=== PATIENT | female | born 1985 | race Caucasian/White ===

== ENCOUNTER 2020-11-24 08:19 | Inpatient (IN) ==
[2020-11-24] MEDS ORDERED: ONDANSETRON 4 MG/2 ML VIAL IV PRN (10:33)
[2020-11-24] MEDS ORDERED: POTASSIUM CHLORIDE 20 MEQ TABLET PO PRN ×2 (10:33)
[2020-11-24] MEDS ORDERED: SENNOSIDES 1 TABLET PO PRN (10:33)
[2020-11-24] MEDS ORDERED: MAGNESIUM SULFATE 2 GM/50 ML BAG IV PRN (10:33)
[2020-11-24] MEDS ORDERED: POTASSIUM CHLORIDE 40 MEQ in DEXTROSE 5% IN WATER 500 ML IV PRN (10:33)
[2020-11-24] MEDS ORDERED: POLYETHYLENE GLYCOL 3350 17 GM PACKET PO PRN (10:33)
--- NOTE | 2020-11-24 10:33 | Internal Med History&Physical ---
HPI History of Present Illness Patient information: Note initiated : 11/24/20 at 10:30 am Service Date, if different from initiated Date: [] Patient: Shaye Dey a 35 y/o F admitted on 11/24/20 for Pneumothorax. Chief Complaint: [] History of present illness: Ms. Dey is a 35 year old F Presents to the ED with chest pain or shortness of breath. Chest pain is left side duration. Started 3 AM while at work. no trauma. She did report that 2 to 3 weeks ago she was exercising on a stair machine for an hour when she developed similar symptoms but not as severe at eventually went away after several hours. pain is sharp and pleuritic. ED work-up included chest x-ray which showed a large pneumothorax and a pigtail catheter was placed. Chest tube placed to waterseal there was an occasional leak. Review of Systems: Pertinent positives as above. Denies headache/fever/chills/nausea/vomiting/abdominal pain/cough/diarrhea. Otherwise see above. PFSH PFSH All Active Problems (Updated 08/21/20 @ 17:05 by ARIANNA David) Pelvic congestion syndrome (Acute) Eosinophilic esophagitis (Acute) Lactose intolerance (Acute) Noninflammatory disorder of vagina (Acute) H/O breast augmentation (Acute) History of tonsillectomy (Acute) Anemia (Acute) Situational anxiety (Acute) Skin lesion (Acute) Fatigue (Acute) Acne vulgaris (Acute) Menometrorrhagia (Acute) Hip pain (Acute) Hip pain, acute (Acute) Muscle tear (Acute) Medical History (Updated 08/21/20 @ 17:05 by ARIANNA David) Acne vulgaris Anemia Eosinophilic esophagitis EGD 07/21/2017 Fatigue Hip pain Hip pain, acute Menometrorrhagia Muscle tear Noninflammatory disorder of vagina Situational anxiety Skin lesion Surgical History (Updated 08/21/20 @ 17:02 by ARIANNA David) H/O breast augmentation 2012 H/O dilation and curettage 2006 History of esophagogastroduodenoscopy (EGD) (~07/21/17) Shannon ~ Dysphagia; known eosinophilic esophagitis with last esophageal biopsies and dilation History of tonsillectomy 1997, one grew back and had repeat tonsillectomy in 1999. Family History Brother Hypertension Father Diabetes Grandmother Arthritis Diabetes Social History (Updated 11/24/20 @ 10:33 by Leon Vergara DO) household members: spouse and family lives independently: No marital status: occupational status: employed occupation: [employer] occupational exposures/hazards: Yes leisure activities: exercise physical activity: weight training frequency: 5-6 times per week smoking status: Never smoker alcohol intake frequency: 0-2 drinks per day seatbelt use: sometimes additional history: Past medical history: He has history of eosinophilic esophagitis Past surgical history: Tonsillectomy D&C left foot Family history: Otherwise healthy and father had diabetes Social history: Patient denies tobacco drinks alcohol rarely MEDS/ALLERGIES Home Medications and Allergies Home Medications Medication Instructions Recorded Confirmed Type No Known Home Meds 05/20/20 08/21/20 History Allergies Allergy/AdvReac Type Severity Reaction Status Date / Time Sulfa (Sulfonamide Allergy Severe Rash Verified 08/21/20 15:14 Antibiotics) EXAM Constitutional Vitals: Temp Resp BP Pulse Ox 98.4 F 16 111/69 100 11/24/20 10:01 11/24/20 10:01 11/24/20 10:01 11/24/20 10:01 Exam: General: Alert, Awake, No acute Distress Eyes/N/T: EOMI, PERRL, Head/Neck: neck supple, normocephalic atraumatic CV: RRR, No murmurs, normal s1/s2 Pulm: Clear b/l, no wheezing/rhonchi/rales, chest tube left side. Abd: soft, nontender, +BS x4 Ext: no clubbing/cyanosis/edema Neuro: Alert, no focal deficits, moves all extremities, CN 2-12 grossly intact, symmetrical strength b/l upper/lower, sensations intact b/l upper/lower Skin: warm/dry A/P Narrative A/P Narrative: A: *PTX, spontaneous: s/p pigtail catheter (11/24) -did have similar less severe episode 2-3weeks ago after 1 hour on stair machine that resolved on own. P: -serial CXR -CT on water seal -ppx: Ambulation/scd Time Spent With Patient Time: Total time spent is greater than 50% in coordination of care (as documented) at patient's floor/unit and/or counseling patient:
--- NOTE | 2020-11-24 10:57 | XRay Report ---
CLINICAL INFORMATION: f/u ptx COMPARISON: None. FINDINGS: Heart size, mediastinum and pulmonary vessels are normal. Pigtail chest tube overlies the left base. There is a persistent 50% pneumothorax or no effusion. Bones and soft tissues normal IMPRESSION: 50% pneumothorax following chest tube placement. It is assumed the tube is malpositioned. Hospitalist was notified. New small bore chest tube will be placed in our department under fluoroscopy and the older tube will be removed Interpreted and Authenticated by: Attila Fabian 11/24/20
[2020-11-24] MEDS: morphine 4 MG/ML VIAL IV PRN ×2 (11:31→21:26)
--- NOTE | 2020-11-24 12:22 | Cat Scan Report ---
CLINICAL INFORMATION: Persistent spontaneous left pneumothorax following left chest tube placement COMPARISON: Plain film 11/24/2021 TECHNIQUE: 0.625 mm axial slices were obtained from the thoracic aortic arch through the mid heart without intravenous contrast. 2.5 mm Sagittal, coronal and axial reformatted images were processed and reviewed at bone, lung and soft tissue windows. 7 mm axial MIP images were also reconstructed to optimize pulmonary nodule detection.Limited exam was performed because the question was merely the chest tube position and breast radiation neither be limited. The exam was performed using radiation dose optimization techniques including, but not limited to, automated exposure control, adjustment of the mA and/or kV according to patient size and use of iterative reconstruction technique. FINDINGS: The pigtail chest tube enters through the lateral fifth intercostal space at approximately the posterior axillary line level. The tube is very near the subcostal neurovascular bundle, but there is no evidence of hemorrhage or other evidence to suggest leak callum disruption of the intercostal artery. The tube traverses superiorly and anteriorly entirely within the pleural space. A persistent 30% left pneumothorax noted. There is mild patchy atelectasis in the left lower lobe lingula and in the visualized right middle lobe. No evidence of pleural hemorrhage. Mediastinal windows show the visualized thoracic aorta and pulmonary arteries are normal. Heart is unremarkable. Visualized esophagus is normal. Bilateral subglandular breast implants show mild irregularity in the outer shell suggestive of adhesive capsulitis. No evidence of calulm extracapsular rupture. IMPRESSION: 1. Left chest tube is in satisfactory position with the draining pigtail portion in the tube within the air-filled nondependent left anterior pleural space. Since there is a persistent pneumothorax following chest tube placement, and is assumed the tube may be occluded - please dislodge the tube to restore functionality. 2. Minor subsegmental atelectasis in the lingula and the left lower lobe.. Interpreted and Authenticated by: Attila Fabian 11/24/20
[2020-11-24] MEDS: HYDROcodone/APAP 5/325MG TABLET PO PRN ×2 (12:29→18:07)
--- NOTE | 2020-11-24 13:16 | XRay Report ---
CLINICAL INFORMATION: ptx COMPARISON: Plain film 11/24/2020 1028 hours FINDINGS: Following jewish of the chest tube patency, the left pneumothorax has decreased considerably now approximately 5%. Both lungs are clear. Heart size, mediastinum and pulmonary vessels are normal. IMPRESSION: Decreasing left pneumothorax - now approximately 5%. Interpreted and Authenticated by: Attila Fabian 11/24/20
[2020-11-24] MEDS: 0.9 % SODIUM CHLORIDE 10 ML SYRINGE IV SCH ×2 (14:00→21:16)
[2020-11-24] MEDS: DOCUSATE SODIUM 100 MG CAPSULE PO SCH (21:16)
[2020-11-25] MEDS: 0.9 % SODIUM CHLORIDE 10 ML SYRINGE IV SCH ×3 (05:51→21:30)
--- NOTE | 2020-11-25 06:52 | XRay Report ---
CLINICAL INFORMATION: f/u ptx COMPARISON: 11/24/2020 FINDINGS: Left pneumothorax increased slightly now approximately 10%. Left chest tube stable satisfactory position. Heart size, mediastinum and pulmonary vessels are normal. Lungs are clear. IMPRESSION: Increase in left pneumothorax - approximately 10%. Consider placing the tube back to suction. Interpreted and Authenticated by: Attila Fabian 11/25/20
[2020-11-25] MEDS: HYDROcodone/APAP 5/325MG TABLET PO PRN ×3 (07:07→19:59)
--- NOTE | 2020-11-25 08:35 | Internal Med Progress Note ---
SUBJECTIVE Subjective Patient information: Note initiated : 11/25/20 at 8:31 am Service Date, if different from initiated Date: [] Patient: Shaye Dey a 35 y/o F admitted on 11/24/20 for Pneumothorax. Chief Complaint: [] Interval history: History of present illness: Ms. Dey is a 35 year old F Presents to the ED with chest pain or shortness of breath. Chest pain is left side duration. Started 3 AM while at work. no trauma. She did report that 2 to 3 weeks ago she was exercising on a stair machine for an hour when she developed similar symptoms but not as severe at eventually went away after several hours. pain is sharp and pleuritic. ED work-up included chest x-ray which showed a large pneumothorax and a pigtail catheter was placed. Chest tube placed to waterseal there was an occasional leak. 11/25 Feeling better. Able to take deeper breaths. pleuritic Chest pain and sob improved. f/u cxr with 10% ptx. Review of Systems: denies headache/fever/chills/nausea/vomiting/chest or abdominal pain/cough/diarrhea. Otherwise see above. Constitutional Vitals: Vital Signs Temp Pulse Resp BP Pulse Ox 97.9 F 68 18 107/66 97 11/25/20 08:00 11/25/20 08:00 11/25/20 08:00 11/25/20 08:00 11/25/20 08:00 Period Temp Pulse Resp BP Sys/Hastings Pulse Ox Last 24 Hr 97.8 F-98.5 F 60-68 16-18 100-120/62-71 97-100 Intake and Output 11/24/20 11/25/20 11/25/20 21:59 05:59 13:59 Intake Total 0 600 Balance 0 600 Weight 70.261 kg Intake & Output: Intake & Output 11/24/20 11/25/20 11/25/20 21:59 05:59 13:59 Intake Total 0 600 Balance 0 600 Weight 70.261 kg Intake: Oral 0 600 Other: # Voids 1 Exam: General: Alert, Awake, No acute Distress Eyes/N/T: EOMI, , Head/Neck: neck supple, CV: RRR, No murmurs, Pulm: Clear b/l, no wheezing/rhonchi/rales, chest tube left side. Abd: soft, nontender, +BS x4 Ext: no clubbing/cyanosis/edema Neuro: Alert, no focal deficits, moves all extremities, Skin: warm/dry OBJ DATA Labs Meds: Medications Acetaminophen (Acetaminophen 325 Mg Tablet) 650 mg PO Q6HP PRN PRN Reason: PAIN/FEVER > 101 Hydrocodone Bitart/Acetaminophen (Hydrocodone/Apap 5/325mg Tablet) 1 tab PO Q4HP PRN PRN Reason: PAIN LEVEL 3-6 Last Admin: 11/25/20 07:07 Dose: 1 tab Documented by: Docusate Sodium (Docusate Sodium 100 Mg Capsule) 100 mg PO BID [facility] Last Admin: 11/24/20 21:16 Dose: 100 mg Documented by: Potassium Chloride 40 meq/ (Dextrose) 520 mls @ 130 mls/hr IV UD PRN PRN Reason: Potassium < 3 Magnesium Sulfate (Magnesium Sulfate) 2 gm in 50 mls @ 50 mls/hr IV UD PRN PRN Reason: Magnesium </= 1.6 Morphine Sulfate (Morphine 4 Mg/Ml Vial) 0 mg IV Q3HP PRN PRN Reason: Pain Last Admin: 11/24/20 21:26 Dose: 3 mg Documented by: Ondansetron HCl (Ondansetron 4 Mg/2 Ml Vial) 4 mg IV Q4HP PRN PRN Reason: Nausea And Vomiting Polyethylene Glycol (Polyethylene Glycol 3350 17 Gm Packet) 17 gm PO DAILYP PRN PRN Reason: Constipation Potassium Chloride (Potassium Chloride 20 Meq Tablet) 40 meq PO UD PRN PRN Reason: Potssium is 3-3.5 Potassium Chloride (Potassium Chloride 20 Meq Tablet) 40 meq PO UD PRN PRN Reason: Potassium < 3 Senna (Sennosides 1 Tablet) 2 tab PO DAILYP PRN PRN Reason: Constipation Sodium Chloride (0.9 % Sodium Chloride 10 Ml Syringe) 10 ml IV Q8 [facility] Last Admin: 11/25/20 05:51 Dose: 10 ml Documented by: A/P Narrative A/P Narrative: A: *PTX, spontaneous: s/p pigtail catheter (11/24) -did have similar less severe episode 2-3weeks ago after 1 hour on stair machine that resolved on own. -improved yesterday but increased to 10% again today P: -serial CXR -place back on suction -ppx: Ambulation/scd Time Spent With Patient Time: Total time spent is greater than 50% in coordination of care (as do cumented) at patient's floor/unit and/or counseling patient: QUALITY VTE Deep Vein Thrombosis/Pulmonary Embolism Present on Admission: No
[2020-11-25] MEDS: DOCUSATE SODIUM 100 MG CAPSULE PO SCH ×2 (09:53→21:48)
--- NOTE | 2020-11-25 13:28 | General Surgery Consult Note ---
HPI Data of Consult Patient: new to practice Consult date: 11/25/20 Requesting physician: Leon Vergara Primary Care Provider: Manju Ho Consult Narrative Chief complaint: Chest pain Reason for consult: Spontaneous pneumothorax History of present illness: This is a pleasant 35-year-old female who initially experienced some chest pain approximately 2 weeks ago when she was working out. She reports she stopped working out and the pain lasted about an hour and then spontaneously resolved. She then was woken up in the middle the night with recurrent chest pain which progressively got worse associated with mild dizziness. She presented to [facility] for work-up, was found to have about a 50% spontaneous pneumothorax. The emergency room provider placed a chest tube and follow-up chest x-ray showed full resolution of the pneumothorax. Apparently there were no beds therefore patient was discharged with a flutter valve and told to present to [facility] where Dr. Vergara would admit her. She was mated to the hospital, repeat chest x-ray showed reaccumulation of the pneumothorax therefore radiology replaced the chest tube. Chest x-ray this morning shows approximately 10% pneumothorax after the chest tube was placed on waterseal overnight. I was asked to see the patient for further chest tube management. She denies any fevers chills nausea or vomiting. cc:: CC: Leon Vergara Review of Systems Review of systems: All systems are reviewed, negative other than above PFSH PFSH All Active Problems Pelvic congestion syndrome (Acute) Eosinophilic esophagitis (Acute) Lactose intolerance (Acute) Noninflammatory disorder of vagina (Acute) H/O breast augmentation (Acute) History of tonsillectomy (Acute) Anemia (Acute) Situational anxiety (Acute) Skin lesion (Acute) Fatigue (Acute) Acne vulgaris (Acute) Menometrorrhagia (Acute) Hip pain (Acute) Hip pain, acute (Acute) Muscle tear (Acute) Medical History Acne vulgaris Anemia Eosinophilic esophagitis EGD 07/21/2017 Fatigue Hip pain Hip pain, acute Menometrorrhagia Muscle tear Noninflammatory disorder of vagina Situational anxiety Skin lesion Surgical History H/O breast augmentation 2012 H/O dilation and curettage 2006 History of esophagogastroduodenoscopy (EGD) (~07/21/17) Shannon ~ Dysphagia; known eosinophilic esophagitis with last esophageal biopsies and dilation History of tonsillectomy 1997, one grew back and had repeat tonsillectomy in 1999. Family History Brother Hypertension Father Diabetes Grandmother Arthritis Diabetes Social History household members: spouse and family lives independently: No marital status: occupational status: employed occupation: [employer] occupational exposures/hazards: Yes leisure activities: exercise physical activity: weight training frequency: 5-6 times per week smoking status: Never smoker alcohol intake frequency: 0-2 drinks per day seatbelt use: sometimes additional history: Past medical history: He has history of eosinophilic esophagitis Past surgical history: Tonsillectomy D&C left foot Family history: Otherwise healthy and father had diabetes Social history: Patient denies tobacco drinks alcohol rarely MEDS/ALLERGIES Home Medications and Allergies Home Medications Medication Instructions Recorded Confirmed Type [id number] K 1 tab PO QPM 11/24/20 11/24/20 History [Adults' Daily Formula] Allergies Allergy/AdvReac Type Severity Reaction Status Date / Time egg Allergy Severe Anaphylaxis Verified 11/24/20 10:50 Sulfa (Sulfonamide Allergy Severe Rash Verified 11/24/20 10:50 Antibiotics) lactose AdvReac Intermediate Nausea Verified 11/24/20 10:50 Physical Examination Vital Signs Vital signs: Temp Pulse Resp BP Pulse Ox 97.9 F 68 18 107/66 97 11/25/20 08:00 11/25/20 08:00 11/25/20 08:00 11/25/20 08:00 11/25/20 08:00 General physical appearance General physical exam: well developed, well nourished and no distress Eyes Eye exam: PERRL and normal ocular movement ENT ENT exam: normal pinna, normal nares, normal mucosa, no hearing loss and no congestion Head Head exam IM: Present atraumatic and normocephalic Neck Neck exam: no masses, no bruits, trachea midline, no lymphadenopathy and no venous distension Cardiovascular Cardiovascular exam IM: Present normal rate and rhythm Respiratory Respiratory exam: normal expansion, clear to auscultation and other (Left-sided chest tube in place) Abdomen Abdomen: Present soft, non tender and bowel sounds Hernia: Present none Genitourinary Genitourinary (Female): Present normal external genitalia Rectum Rectum: Present normal sphincter tone, no hemorrhoids, no tenderness, no masses and no bleeding Integumentary Integumentary: Present no rash, no growths and no abnormal pigmentation Neurologic Neurologic: Present normal coordination and normal sensation Musculoskeletal Musculoskeletal: Present normal gait and normal posture Psychiatric Psychiatric: Present oriented to time, oriented to person, oriented to place, speech is normal and memory intact Results Labs Labs: All other labs normal. A/P Narrative A/P Narrative: Spontaneous pneumothorax. Recommendations: Chest tube to suction for minimum 24 hours, repeat chest x-ray if no pneumothorax then can try waterseal with chest x-ray 4 hours after being placed on waterseal. If pneumothorax continues patient will likely need thoracic surgery transfer. Time Spent With Patient Time: Total time spent is greater than 50% in coordination of care (as documented) at patient's floor/unit and/or counseling patient: Total time spent with greater than 50% in coordination of care (as documented) at patient's floor/unit and/or counseling patient:: Greater than 35 minutes
[2020-11-25] MEDS: morphine 4 MG/ML VIAL IV PRN (15:24)
[2020-11-26] MEDS: morphine 4 MG/ML VIAL IV PRN ×2 (02:16→10:14)
[2020-11-26] MEDS: DOCUSATE SODIUM 100 MG CAPSULE PO SCH ×2 (08:15→20:10)
[2020-11-26] MEDS: HYDROcodone/APAP 5/325MG TABLET PO PRN ×2 (08:25→18:39)
[2020-11-26] MEDS: 0.9 % SODIUM CHLORIDE 10 ML SYRINGE IV SCH ×3 (08:26→20:10)
--- NOTE | 2020-11-26 08:39 | Internal Med Progress Note ---
SUBJECTIVE Subjective Patient information: Note initiated : 11/26/20 at 8:37 am Service Date, if different from initiated Date: [] Patient: Shaye Dey a 35 y/o F admitted on 11/24/20 for Pneumothorax. Chief Complaint: [] Interval history: History of present illness: Ms. Dey is a 35 year old F Presents to the ED with chest pain or shortness of breath. Chest pain is left side duration. Started 3 AM while at work. no trauma. She did report that 2 to 3 weeks ago she was exercising on a stair machine for an hour when she developed similar symptoms but not as severe at eventually went away after several hours. pain is sharp and pleuritic. ED work-up included chest x-ray which showed a large pneumothorax and a pigtail catheter was placed. Chest tube placed to waterseal there was an occasional leak. 11/25 Feeling better. Able to take deeper breaths. pleuritic Chest pain and sob improved. f/u cxr with 10% ptx. 11/26 Continues to feel better. Waiting follow-up chest x-ray. No new complaints overnight events. Review of Systems: denies headache/fever/chills/nausea/vomiting/chest or abdominal pain/cough/diarrhea. Otherwise see above. Constitutional Vitals: Vital Signs Temp Pulse Resp BP Pulse Ox 98.6 F 61 20 90/51 97 11/26/20 08:00 11/26/20 08:00 11/26/20 08:00 11/26/20 08:00 11/26/20 08:00 Period Temp Pulse Resp BP Sys/Hastings Pulse Ox Last 24 Hr 97.4 F-98.6 F 61-77 16-22 90-116/51-72 97-98 Intake and Output 11/25/20 11/26/20 11/26/20 21:59 05:59 13:59 Intake Total 700 400 Output Total 5 Balance 700 395 Weight 70.488 kg Intake & Output: Intake & Output 11/25/20 11/26/20 11/26/20 21:59 05:59 13:59 Intake Total 700 400 Output Total 5 Balance 700 395 Weight 70.488 kg Intake: Oral 700 400 Output: Chest Tube Drainage 5 Left Lateral Chest 5 Exam: General: Alert, Awake, No acute Distress Eyes/N/T: EOMI, , Head/Neck: neck supple, CV: RRR, No murmurs, Pulm: Clear b/l, no wheezing/rhonchi/rales, chest tube left side. Abd: soft, nontender, +BS x4 Ext: no clubbing/cyanosis/edema Neuro: Alert, no focal deficits, moves all extremities, Skin: warm/dry OBJ DATA Labs Meds: Medications Acetaminophen (Acetaminophen 325 Mg Tablet) 650 mg PO Q6HP PRN PRN Reason: PAIN/FEVER > 101 Hydrocodone Bitart/Acetaminophen (Hydrocodone/Apap 5/325mg Tablet) 1 tab PO Q4HP PRN PRN Reason: PAIN LEVEL 3-6 Last Admin: 11/26/20 08:25 Dose: 1 tab Documented by: Docusate Sodium (Docusate Sodium 100 Mg Capsule) 100 mg PO BID [facility] Last Admin: 11/26/20 08:15 Dose: Not Given Documented by: Potassium Chloride 40 meq/ (Dextrose) 520 mls @ 130 mls/hr IV UD PRN PRN Reason: Potassium < 3 Magnesium Sulfate (Magnesium Sulfate) 2 gm in 50 mls @ 50 mls/hr IV UD PRN PRN Reason: Magnesium </= 1.6 Morphine Sulfate (Morphine 4 Mg/Ml Vial) 0 mg IV Q3HP PRN PRN Reason: Pain Last Admin: 11/26/20 02:16 Dose: 3 mg Documented by: Ondansetron HCl (Ondansetron 4 Mg/2 Ml Vial) 4 mg IV Q4HP PRN PRN Reason: Nausea And Vomiting Polyethylene Glycol (Polyethylene Glycol 3350 17 Gm Packet) 17 gm PO DAILYP PRN PRN Reason: Constipation Potassium Chloride (Potassium Chloride 20 Meq Tablet) 40 meq PO UD PRN PRN Reason: Potssium is 3-3.5 Potassium Chloride (Potassium Chloride 20 Meq Tablet) 40 meq PO UD PRN PRN Reason: Potassium < 3 Senna (Sennosides 1 Tablet) 2 tab PO DAILYP PRN PRN Reason: Constipation Sodium Chloride (0.9 % Sodium Chloride 10 Ml Syringe) 10 ml IV Q8 [facility] Last Admin: 11/26/20 08:26 Dose: 10 ml Documented by: A/P Narrative A/P Narrative: A: *PTX, spontaneous: s/p pigtail catheter (11/24) -did have similar less severe episode 2-3weeks ago after 1 hour on stair machine that resolved on own. - P: -Chest tube per surgeon -serial CXR -ppx: Ambulation/scd Time Spent With Patient Time: Total time spent is greater than 50% in coordination of care (as documented) at patient's floor/unit and/or counseling patient: QUALITY VTE Deep Vein Thrombosis/Pulmonary Embolism Present on Admission: No
--- NOTE | 2020-11-26 09:21 | General Surgery Progress Note ---
SUBJECTIVE Subjective Patient information: Note initiated : 11/26/20 at 9:18 am Service Date, if different from initiated Date: [] Patient: Shaye Dey 35 y/o F admitted on 11/24/20 for Pneumothorax. Chief Complaint: [] Interval history: Chest tube placed on suction overnight. Patient is tolerating it well. Reports decreased in amount of pain. Denies any nausea vomiting fevers or chills. Constitutional Vitals: Vital Signs Temp Pulse Resp BP Pulse Ox 98.6 F 61 20 90/51 97 11/26/20 08:00 11/26/20 08:00 11/26/20 08:00 11/26/20 08:00 11/26/20 08:00 Period Temp Pulse Resp BP Sys/Hastings Pulse Ox Last 24 Hr 97.4 F-98.6 F 61-77 16-22 90-116/51-72 97-98 Intake and Output 11/25/20 11/26/20 11/26/20 21:59 05:59 13:59 Intake Total 700 400 Output Total 5 Balance 700 395 Weight 155 lb 6.4 oz Intake & Output: Intake & Output 11/25/20 11/26/20 11/26/20 21:59 05:59 13:59 Intake Total 700 400 Output Total 5 Balance 700 395 Weight 155 lb 6.4 oz Intake: Oral 700 400 Output: Chest Tube Drainage 5 Left Lateral Chest 5 General appearance: cooperative and no acute distress Head Head exam: Present atraumatic Respiratory Additional comments: Chest tube intact, no air leak noted. GI/Abdominal GI/Abdominal exam: Present soft; Absent distended A/P Narrative A/P Narrative: Spontaneous pneumothorax with recurrent pneumothorax. Chest tube placed on suction for 24 hours. Plan chest x-ray at 10, if no pneumothorax will place on waterseal with repeat chest x-ray in 6 hours. If continued pneumothorax will leave on suction for a full 48 hours. Time Spent With Patient Time: Total time spent is greater than 50% in coordination of care (as documented) at patient's floor/unit and/or counseling patient:
--- NOTE | 2020-11-26 09:29 | XRay Report ---
CLINICAL INFORMATION: ptx COMPARISON: 11/25/2020 FINDINGS: Left pneumothorax as almost completely resolved with only a tiny sliver of residual pleural air in the apex region. The chest tube is now seen over the lateral left upper thorax. Lungs are clear. Heart size, mediastinum and pulmonary vessels are normal. IMPRESSION: Near complete resolution of left pneumothorax. Consider test closure of the tube for two hours and repeat film. If the lung remains expanded on follow-up film, the tube could be removed. Interpreted and Authenticated by: Attila Fabian 11/26/20
--- NOTE | 2020-11-26 12:17 | XRay Report ---
CLINICAL INFORMATION: pneumothorax two hours following has closure of the bowel COMPARISON: None. FINDINGS: Film taken two hours following chest closure of the valve shows slight increase in left pneumothorax - now approximately 5-10%. Heart size, mediastinum and pulmonary vessels normal. Lungs are clear. No effusions IMPRESSION: Slight progression of left pneumothorax two hours following chest closure suggest suggesting persistent air leak. Suggest the valve be reopened. The patient may go home with tube if desired Interpreted and Authenticated by: Attila Fabian 11/26/20
--- NOTE | 2020-11-26 13:08 | Discharge Summary ---
Discharge Provider Provider Patient information: Note initiated : 11/26/20 at 1:07 pm Service Date, if different from initiated Date: [] Patient: Shaye Dey 35 y/o F admitted on 11/25/20 for Pneumothorax. Chief Complaint: [] Date of admission: 11/25/20 10:05 Primary care physician: Manju Ho Consults: 11/25/20 10:03 Consult to Physician [CONS] Routine Comment: ptx Consulting Provider: James Molina Reason For Exam: Physician to Consult Discharge Meds Discharge Medications Home Medications wumrgism-sml-dovz-vitamin K [Adults' Daily Formula] 1 tab PO QPM 11/24/20 [History Confirmed 11/24/20 Last Taken 11/23/20 22:00] COURSE Hospital Course Hospital course: History of present illness: Ms. Dey is a 35 year old F Presents to the ED with chest pain or shortness of breath. Chest pain is left side duration. Started 3 AM while at work. no trauma. She did report that 2 to 3 weeks ago she was exercising on a stair machine for an hour when she developed similar symptoms but not as severe at eventually went away after several hours. pain is sharp and pleuritic. ED work-up included chest x-ray which showed a large pneumothorax and a pigtail catheter was placed. Chest tube placed to waterseal there was an occasional leak. 11/25 Feeling better. Able to take deeper breaths. pleuritic Chest pain and sob improved. f/u cxr with 10% ptx. 11/26 Continues to feel better. Waiting follow-up chest x-ray. No new complaints overnight events. A: *PTX, spontaneous: s/p pigtail catheter (11/24) -did have similar less severe episode 2-3weeks ago after 1 hour on stair machine that resolved on own. Discharge diagnosis: Spontaneous pneumothorax Time Spent with Patient Time attestation: Total time spent providing and/or coordinating discharge services: Time spent: Greater than 30 minutes EXAM Constitutional Vitals: Temp Pulse Resp BP Pulse Ox 98.6 F 61 20 90/51 97 11/26/20 08:00 11/26/20 08:00 11/26/20 08:00 11/26/20 08:00 11/26/20 08:00 Discharge Plan Patient/Caregiver Discharge Instructions Activity: increase activity as tolerated Diet: Regular Diet Prescriptions: No Action Adults' Daily Formula 18 mg iron-25 mcg Tablet 1 tab PO QPM RF: 0 Follow Up Plan Follow up with: James Molina MD [Physician] - Patient Disposition: Home, Self-Care Prognosis: Fair QUALITY VTE Deep Vein Thrombosis/Pulmonary Embolism Present on Admission: No
[2020-11-26] MEDS: ACETAMINOPHEN 325 MG TABLET PO PRN ×2 (14:36→23:21)
[2020-11-27] MEDS: HYDROcodone/APAP 5/325MG TABLET PO PRN ×3 (00:17→20:17)
[2020-11-27] MEDS: 0.9 % SODIUM CHLORIDE 10 ML SYRINGE IV SCH ×3 (05:56→20:18)
--- NOTE | 2020-11-27 07:42 | Internal Med Progress Note ---
SUBJECTIVE Subjective Patient information: Note initiated : 11/27/20 at 7:41 am Service Date, if different from initiated Date: [] Patient: Shaye Dey a 35 y/o F admitted on 11/25/20 for Pneumothorax. Chief Complaint: [] Interval history: History of present illness: Ms. Dey is a 35 year old F Presents to the ED with chest pain or shortness of breath. Chest pain is left side duration. Started 3 AM while at work. no trauma. She did report that 2 to 3 weeks ago she was exercising on a stair machine for an hour when she developed similar symptoms but not as severe at eventually went away after several hours. pain is sharp and pleuritic. ED work-up included chest x-ray which showed a large pneumothorax and a pigtail catheter was placed. Chest tube placed to waterseal there was an occasional leak. 11/25 Feeling better. Able to take deeper breaths. pleuritic Chest pain and sob improved. f/u cxr with 10% ptx. 11/26 Continues to feel better. Waiting follow-up chest x-ray. No new complaints overnight events. Review of Systems: denies headache/fever/chills/nausea/vomiting/chest or abdominal pain/cough/diarrhea. Otherwise see above. 11/27 Feeling better today. Mild chest pain in the scapular region when she lays down but otherwise no complaints. Review of Systems: denies headache/fever/chills/nausea/vomiting/abdominal pain/cough/diarrhea. Otherwise see above. Constitutional Vitals: Vital Signs Temp Pulse Resp BP Pulse Ox 97.7 F 63 14 101/59 98 11/27/20 03:00 11/27/20 03:00 11/27/20 03:00 11/27/20 03:00 11/27/20 03:00 Period Temp Pulse Resp BP Sys/Hastings Pulse Ox Last 24 Hr 97.7 F-99 F 61-72 14-20 90-123/51-72 96-100 Intake and Output 11/26/20 11/27/20 11/27/20 21:59 05:59 13:59 Intake Total 250 400 Output Total 0 600 Balance 250 -200 Weight 71.305 kg Intake & Output: Intake & Output 11/26/20 11/27/20 11/27/20 21:59 05:59 13:59 Intake Total 250 400 Output Total 0 600 Balance 250 -200 Weight 71.305 kg Intake: Oral 250 400 Output: Drainage 0 Pigtail 0 Drainage 0 Pigtail 0 Void Amount 600 Other: Meal Lunch Percent of Meal Consumed 75% Feeding Ability Independent Urine Appearance Clear Clear Urine Color Bright Yellow Bright Yellow Urine Odor Normal Normal Exam: General: Alert, Awake, No acute Distress Eyes/N/T: EOMI, , Head/Neck: neck supple, CV: RRR, No murmurs, Pulm: Clear b/l, no wheezing/rhonchi/rales, chest tube left side. Abd: soft, nontender, +BS x4 Ext: no clubbing/cyanosis/edema Neuro: Alert, no focal deficits, moves all extremities, Skin: warm/dry OBJ DATA Labs Meds: Medications Acetaminophen (Acetaminophen 325 Mg Tablet) 650 mg PO Q6HP PRN PRN Reason: PAIN/FEVER > 101 Last Admin: 11/26/20 23:21 Dose: 650 mg Documented by: Hydrocodone Bitart/Acetaminophen (Hydrocodone/Apap 5/325mg Tablet) 1 tab PO Q4HP PRN PRN Reason: PAIN LEVEL 3-6 Last Admin: 11/27/20 00:17 Dose: 1 tab Documented by: Docusate Sodium (Docusate Sodium 100 Mg Capsule) 100 mg PO BID MATTHEW Last Admin: 11/26/20 20:10 Dose: 100 mg Documented by: Potassium Chloride 40 meq/ (Dextrose) 520 mls @ 130 mls/hr IV UD PRN PRN Reason: Potassium < 3 Magnesium Sulfate (Magnesium Sulfate) 2 gm in 50 mls @ 50 mls/hr IV UD PRN PRN Reason: Magnesium </= 1.6 Morphine Sulfate (Morphine 4 Mg/Ml Vial) 0 mg IV Q3HP PRN PRN Reason: Pain Last Admin: 11/26/20 10:14 Dose: 2 mg Documented by: Ondansetron HCl (Ondansetron 4 Mg/2 Ml Vial) 4 mg IV Q4HP PRN PRN Reason: Nausea And Vomiting Last Admin: 11/26/20 11:30 Dose: 4 mg Documented by: Polyethylene Glycol (Polyethylene Glycol 3350 17 Gm Packet) 17 gm PO DAILYP PRN PRN Reason: Constipation Potassium Chloride (Potassium Chloride 20 Meq Tablet) 40 meq PO UD PRN PRN Reason: Potssium is 3-3.5 Potassium Chloride (Potassium Chloride 20 Meq Tablet) 40 meq PO UD PRN PRN Reason: Potassium < 3 Senna (Sennosides 1 Tablet) 2 tab PO DAILYP PRN PRN Reason: Constipation Sodium Chloride (0.9 % Sodium Chloride 10 Ml Syringe) 10 ml IV Q8 MATTHEW Last Admin: 11/27/20 05:56 Dose: 10 ml Documented by: A/P Narrative A/P Narrative: A: *PTX, spontaneous: s/p pigtail catheter (11/24) -did have similar less severe episode 2-3weeks ago after 1 hour on stair machine that resolved on own. - P: -Chest tube per surgeon -serial CXR -ppx: Ambulation/scd Time Spent With Patient Time: Total time spent is greater than 50% in coordination of care (as documented) at patient's floor/unit and/or counseling patient: QUALITY VTE Deep Vein Thrombosis/Pulmonary Embolism Present on Admission: No
[2020-11-27] MEDS: DOCUSATE SODIUM 100 MG CAPSULE PO SCH ×2 (09:47→20:17)
[2020-11-27] MEDS ORDERED: diphenhydrAMINE 25 MG CAPSULE PO PRN (09:52)
--- NOTE | 2020-11-27 13:47 | XRay Report ---
CLINICAL INFORMATION: Pneumothorax COMPARISON: 11/26/2020 FINDINGS: Heart size, mediastinum and pulmonary vessels are normal. The lungs are clear. There is only a tiny residual sliver-like left pneumothorax. Chest tube remains in stable position IMPRESSION: Only a tiny residual sliver-like left apical pneumothorax Interpreted and Authenticated by: Attila Fabian 11/27/20
--- NOTE | 2020-11-27 14:43 | General Surgery Progress Note ---
SUBJECTIVE Subjective Patient information: Note initiated : 11/27/20 at 2:41 pm Service Date, if different from initiated Date: [] Patient: Shaye Dey 35 y/o F admitted on 11/25/20 for Pneumothorax. Chief Complaint: [] Interval history: Hospital day #3 status post Doris is pneumothorax. Patient with repeat pneumothorax yesterday after being placed on waterseal approximately 30 to 40%, placed back on suction for 24 hours. Chest x-ray at 24 hours shows a tiny sliver of a pneumothorax. Constitutional Vitals: Vital Signs Temp Pulse Resp BP Pulse Ox 98.6 F 76 14 110/65 96 11/27/20 07:00 11/27/20 07:00 11/27/20 07:00 11/27/20 07:00 11/27/20 07:00 Period Temp Pulse Resp BP Sys/Hastings Pulse Ox Last 24 Hr 97.7 F-99 F 63-76 14-18 96-123/55-65 96-100 Intake and Output 11/27/20 11/27/20 11/27/20 05:59 13:59 21:59 Intake Total 400 Output Total 600 0 Balance -200 0 Intake & Output: Intake & Output 11/27/20 11/27/20 11/27/20 05:59 13:59 21:59 Intake Total 400 Output Total 600 0 Balance -200 0 Intake: Oral 400 Output: Drainage 0 Pigtail 0 Drainage 0 Pigtail 0 Void Amount 600 Other: Urine Appearance Clear Urine Color Bright Yellow Urine Odor Normal General appearance: cooperative and no acute distress Respiratory Respiratory exam: Present normal respiratory exam Additional comments: Left-sided chest tube in place. Dressing taken down, new Vaseline gauze and tape applied. A/P Narrative A/P Narrative: This is a pleasant 35-year-old female who presents with a spontaneous pneumothorax with pneumothorax on suction. Dressing changed, will continue with chest tube on suction for 24 hours and repeat chest x-ray tomorrow. Further treatment at that time will be determined on chest x-ray. Time Spent With Patient Time: Total time spent is greater than 50% in coordination of care (as documented) at patient's floor/unit and/or counseling patient:
[2020-11-27] MEDS ORDERED: MELATONIN 3 MG TABLET PO SCH (21:00)
[2020-11-28] MEDS: HYDROcodone/APAP 5/325MG TABLET PO PRN (04:06)
[2020-11-28] MEDS: 0.9 % SODIUM CHLORIDE 10 ML SYRINGE IV SCH (04:06)
--- NOTE | 2020-11-28 08:49 | Internal Med Progress Note ---
SUBJECTIVE Subjective Patient information: Note initiated : 11/28/20 at 8:47 am Service Date, if different from initiated Date: [] Patient: Shaye Dey a 35 y/o F admitted on 11/25/20 for Pneumothorax. Chief Complaint: [] Interval history: History of present illness: Ms. Dey is a 35 year old F Presents to the ED with chest pain or shortness of breath. Chest pain is left side duration. Started 3 AM while at work. no trauma. She did report that 2 to 3 weeks ago she was exercising on a stair machine for an hour when she developed similar symptoms but not as severe at eventually went away after several hours. pain is sharp and pleuritic. ED work-up included chest x-ray which showed a large pneumothorax and a pigtail catheter was placed. Chest tube placed to waterseal there was an occasional leak. 11/25 Feeling better. Able to take deeper breaths. pleuritic Chest pain and sob improved. f/u cxr with 10% ptx. 11/26 Continues to feel better. Waiting follow-up chest x-ray. No new complaints overnight events. Review of Systems: denies headache/fever/chills/nausea/vomiting/chest or abdominal pain/cough/diarrhea. Otherwise see above. 11/27 Feeling better today. Mild chest pain in the scapular region when she lays down but otherwise no complaints. 11/28 Good sleep and continues to feel better today. Review of Systems: denies headache/fever/chills/nausea/vomiting/abdominal pain/cough/diarrhea. Otherwise see above. Constitutional Vitals: Vital Signs Temp Pulse Resp BP Pulse Ox 97.5 F 54 L 18 105/63 99 11/28/20 06:36 11/28/20 06:36 11/28/20 06:36 11/28/20 06:36 11/28/20 06:36 Period Temp Pulse Resp BP Sys/Hastings Pulse Ox Last 24 Hr 97.5 F-98.1 F 54-84 16-18 95-124/49-73 97-99 Intake and Output 11/27/20 11/28/20 11/28/20 21:59 05:59 13:59 Intake Total 440 Output Total 600 Balance -600 440 Weight 72.03 kg Intake & Output: Intake & Output 11/27/20 11/28/20 11/28/20 21:59 05:59 13:59 Intake Total 440 Output Total 600 Balance -600 440 Weight 72.03 kg Intake: Oral 440 Output: Void Amount 600 Other: Meal Dinner Percent of Meal Consumed 100% Exam: General: Alert, Awake, No acute Distress Eyes/N/T: EOMI, , Head/Neck: neck supple, CV: RRR, No murmurs, Pulm: Clear b/l, no wheezing/rhonchi/rales, chest tube left side. Abd: soft, nontender, +BS x4 Ext: no clubbing/cyanosis/edema Neuro: Alert, no focal deficits, moves all extremities, Skin: warm/dry OBJ DATA Labs Meds: Medications Acetaminophen (Acetaminophen 325 Mg Tablet) 650 mg PO Q6HP PRN PRN Reason: PAIN/FEVER > 101 Last Admin: 11/26/20 23:21 Dose: 650 mg Documented by: Hydrocodone Bitart/Acetaminophen (Hydrocodone/Apap 5/325mg Tablet) 1 tab PO Q4HP PRN PRN Reason: PAIN LEVEL 3-6 Last Admin: 11/28/20 04:06 Dose: 1 tab Documented by: Diphenhydramine HCl (Diphenhydramine 25 Mg Capsule) 25 mg PO HSP PRN PRN Reason: Insomnia Docusate Sodium (Docusate Sodium 100 Mg Capsule) 100 mg PO BID [facility] Last Admin: 11/27/20 20:17 Dose: 100 mg Documented by: Potassium Chloride 40 meq/ (Dextrose) 520 mls @ 130 mls/hr IV UD PRN PRN Reason: Potassium < 3 Magnesium Sulfate (Magnesium Sulfate) 2 gm in 50 mls @ 50 mls/hr IV UD PRN PRN Reason: Magnesium </= 1.6 Melatonin (Melatonin 3 Mg Tablet) 3 mg PO QHS [facility] Last Admin: 11/27/20 20:18 Dose: 3 mg Documented by: Morphine Sulfate (Morphine 4 Mg/Ml Vial) 0 mg IV Q3HP PRN PRN Reason: Pain Last Admin: 11/26/20 10:14 Dose: 2 mg Documented by: Ondansetron HCl (Ondansetron 4 Mg/2 Ml Vial) 4 mg IV Q4HP PRN PRN Reason: Nausea And Vomiting Last Admin: 11/26/20 11:30 Dose: 4 mg Documented by: Polyethylene Glycol (Polyethylene Glycol 3350 17 Gm Packet) 17 gm PO DAILYP PRN PRN Reason: Constipation Potassium Chloride (Potassium Chloride 20 Meq Tablet) 40 meq PO UD PRN PRN Reason: Potssium is 3-3.5 Potassium Chloride (Potassium Chloride 20 Meq Tablet) 40 meq PO UD PRN PRN Reason: Potassium < 3 Senna (Sennosides 1 Tablet) 2 tab PO DAILYP PRN PRN Reason: Constipation Sodium Chloride (0.9 % Sodium Chloride 10 Ml Syringe) 10 ml IV Q8 MATTHEW Last Admin: 11/28/20 04:06 Dose: 10 ml Documented by: A/P Narrative A/P Narrative: A: *PTX, spontaneous: s/p pigtail catheter (11/24) -did have similar less severe episode 2-3weeks ago after 1 hour on stair machine that resolved on own. P: -Chest tube per surgeon -d/c home when ok with General Surgeon -ppx: Ambulation/scd Time Spent With Patient Time: Total time spent is greater than 50% in coordination of care (as documented) at patient's floor/unit and/or counseling patient: QUALITY VTE Deep Vein Thrombosis/Pulmonary Embolism Present on Admission: No
[2020-11-28] MEDS: DOCUSATE SODIUM 100 MG CAPSULE PO SCH (09:12)
[2020-11-28] MEDS: ACETAMINOPHEN 325 MG TABLET PO PRN (12:19)
--- NOTE | 2020-11-28 12:50 | XRay Report ---
CLINICAL INFORMATION: Follow-up pneumothorax, continue need for suction COMPARISON: 11/27/2020 FINDINGS: Left pneumothorax has resolved. Left chest tube in stable position. Heart size, mediastinum and pulmonary vessels are normal. No effusions. IMPRESSION: Complete resolution of left pneumothorax. Negative chest Interpreted and Authenticated by: Attila Fabian 11/28/20
--- NOTE | 2020-11-28 13:09 | Internal Med Progress Note ---
SUBJECTIVE Subjective Patient information: Note initiated : 11/29/20 at 1:07 pm Service Date, if different from initiated Date: [] Patient: Shaye Dey a 35 y/o F admitted on 11/25/20 for Pneumothorax. Chief Complaint: [] Interval history: History of present illness: Ms. Dey is a 35 year old F Presents to the ED with chest pain or shortness of breath. Chest pain is left side duration. Started 3 AM while at work. no trauma. She did report that 2 to 3 weeks ago she was exercising on a stair machine for an hour when she developed similar symptoms but not as severe at eventually went away after several hours. pain is sharp and pleuritic. ED work-up included chest x-ray which showed a large pneumothorax and a pigtail catheter was placed. Chest tube placed to waterseal there was an occasional leak. 11/25 Feeling better. Able to take deeper breaths. pleuritic Chest pain and sob improved. f/u cxr with 10% ptx. 11/26 Continues to feel better. Waiting follow-up chest x-ray. No new complaints overnight events. Review of Systems: denies headache/fever/chills/nausea/vomiting/chest or abdominal pain/cough/diarrhea. Otherwise see above. 11/27 Feeling better today. Mild chest pain in the scapular region when she lays down but otherwise no complaints. 11/28 Good sleep and continues to feel better today. Review of Systems: denies headache/fever/chills/nausea/vomiting/abdominal pain/cough/diarrhea. Otherwise see above. Constitutional Vitals: Vital Signs Temp Pulse Resp BP Pulse Ox 98.8 F 70 18 106/65 100 11/28/20 11:27 11/28/20 11:27 11/28/20 11:27 11/28/20 11:11/28/20 11:27 Period Temp Pulse Resp BP Sys/Hastings Pulse Ox Last 24 Hr 97.5 F-98.8 F 54-84 16-18 95-124/49-73 97-100 Intake and Output 11/27/20 11/28/20 11/28/20 21:59 05:59 13:59 Intake Total 440 Output Total 600 Balance -600 440 Weight 72.03 kg Intake & Output: Intake & Output 11/27/20 11/28/20 11/28/20 21:59 05:59 13:59 Intake Total 440 Output Total 600 Balance -600 440 Weight 72.03 kg Intake: Oral 440 Output: Void Amount 600 Other: Meal Dinner Percent of Meal Consumed 100% Exam: General: Alert, Awake, No acute Distress Eyes/N/T: EOMI, , Head/Neck: neck supple, CV: RRR, No murmurs, Pulm: Clear b/l, no wheezing/rhonchi/rales, chest tube left side. Abd: soft, nontender, +BS x4 Ext: no clubbing/cyanosis/edema Neuro: Alert, no focal deficits, moves all extremities, Skin: warm/dry OBJ DATA Labs Meds: Medications Acetaminophen (Acetaminophen 325 Mg Tablet) 650 mg PO Q6HP PRN PRN Reason: PAIN/FEVER > 101 Last Admin: 11/28/20 12:19 Dose: 650 mg Documented by: Hydrocodone Bitart/Acetaminophen (Hydrocodone/Apap 5/325mg Tablet) 1 tab PO Q4HP PRN PRN Reason: PAIN LEVEL 3-6 Last Admin: 11/28/20 04:06 Dose: 1 tab Documented by: Diphenhydramine HCl (Diphenhydramine 25 Mg Capsule) 25 mg PO HSP PRN PRN Reason: Insomnia Docusate Sodium (Docusate Sodium 100 Mg Capsule) 100 mg PO BID [facility] Last Admin: 11/28/20 09:12 Dose: Not Given Documented by: Potassium Chloride 40 meq/ (Dextrose) 520 mls @ 130 mls/hr IV UD PRN PRN Reason: Potassium < 3 Magnesium Sulfate (Magnesium Sulfate) 2 gm in 50 mls @ 50 mls/hr IV UD PRN PRN Reason: Magnesium </= 1.6 Melatonin (Melatonin 3 Mg Tablet) 3 mg PO QHS [facility] Last Admin: 11/27/20 20:18 Dose: 3 mg Documented by: Morphine Sulfate (Morphine 4 Mg/Ml Vial) 0 mg IV Q3HP PRN PRN Reason: Pain Last Admin: 11/26/20 10:14 Dose: 2 mg Documented by: Ondansetron HCl (Ondansetron 4 Mg/2 Ml Vial) 4 mg IV Q4HP PRN PRN Reason: Nausea And Vomiting Last Admin: 11/26/20 11:30 Dose: 4 mg Documented by: Polyethylene Glycol (Polyethylene Glycol 3350 17 Gm Packet) 17 gm PO DAILYP PRN PRN Reason: Constipation Potassium Chloride (Potassium Chloride 20 Meq Tablet) 40 meq PO UD PRN PRN Reason: Potssium is 3-3.5 Potassium Chloride (Potassium Chloride 20 Meq Tablet) 40 meq PO UD PRN PRN Reason: Potassium < 3 Senna (Sennosides 1 Tablet) 2 tab PO DAILYP PRN PRN Reason: Constipation Sodium Chloride (0.9 % Sodium Chloride 10 Ml Syringe) 10 ml IV Q8 MATTHEW Last Admin: 11/28/20 04:06 Dose: 10 ml Documented by: A/P Narrative A/P Narrative: A: *PTX, spontaneous: s/p pigtail catheter (11/24) -did have similar less severe episode 2-3weeks ago after 1 hour on stair machine that resolved on own. P: -Chest tube per surgeon -d/c home when ok with General Surgeon -ppx: Ambulation/scd Time Spent With Patient Time: Total time spent is greater than 50% in coordination of care (as documented) at patient's floor/unit and/or counseling patient: QUALITY VTE Deep Vein Thrombosis/Pulmonary Embolism Present on Admission: No
--- NOTE | 2020-11-28 13:31 | General Surgery Progress Note ---
SUBJECTIVE Subjective Patient information: Note initiated : 11/28/20 at 1:30 pm Service Date, if different from initiated Date: [] Patient: Shaye Dey 35 y/o F admitted on 11/25/20 for Pneumothorax. Chief Complaint: [] Interval history: Patient mated with spontaneous pneumothorax, problem maintaining full expansion of the lung off suction. Chest x-ray after chest tube on suction for 48 hours shows good expansion of lung. Constitutional Vitals: Vital Signs Temp Pulse Resp BP Pulse Ox 98.8 F 70 18 106/65 100 11/28/20 11:27 11/28/20 11:27 11/28/20 11:27 11/28/20 11:27 11/28/20 11:27 Period Temp Pulse Resp BP Sys/Hastings Pulse Ox Last 24 Hr 97.5 F-98.8 F 54-84 16-18 95-124/49-73 97-100 Intake and Output 11/27/20 11/28/20 11/28/20 21:59 05:59 13:59 Intake Total 440 Output Total 600 Balance -600 440 Weight 158 lb 12.8 oz Intake & Output: Intake & Output 11/27/20 11/28/20 11/28/20 21:59 05:59 13:59 Intake Total 440 Output Total 600 Balance -600 440 Weight 158 lb 12.8 oz Intake: Oral 440 Output: Void Amount 600 Other: Meal Dinner Percent of Meal Consumed 100% General appearance: cooperative and no acute distress A/P Narrative A/P Narrative: Lung fully expanded on suction today. We will place chest tube to waterseal, repeat chest x-ray in 2 hours. If she maintains expansion can remove chest tube and discharge home. Time Spent With Patient Time: Total time spent is greater than 50% in coordination of care (as documented) at patient's floor/unit and/or counseling patient:
--- NOTE | 2020-11-28 16:33 | XRay Report ---
CLINICAL INFORMATION: Postop pneumothorax COMPARISON: 11/28/2020 1452 hours FINDINGS: Following left chest tube removal, left lung remains reexpanded. Lungs are clear. No effusions. Heart size, mediastinum and pulmonary vessels are normal. IMPRESSION: Left chest tube now out. No evidence recurrent pneumothorax. Normal chest Interpreted and Authenticated by: Attila Fabian 11/28/20
--- NOTE | 2020-11-28 16:44 | XRay Report ---
CLINICAL INFORMATION: Follow-up chest tube COMPARISON: None. FINDINGS: Chest tubes in satisfactory position. No evidence of residual pneumothorax. Heart size, mediastinum and pulmonary vessels are normal. The lungs are clear. IMPRESSION: Resolution of left pneumothorax. Normal chest Interpreted and Authenticated by: Attila Fabian 11/28/20
--- NOTE | 2020-11-28 17:11 | Discharge Summary ---
Discharge Provider Provider Patient information: Note initiated : 11/28/20 at 5:05 pm Service Date, if different from initiated Date: [] Patient: Shaye Dey 35 y/o F admitted on 11/25/20 for Pneumothorax. Chief Complaint: [chest pain] Date of admission: 11/25/20 10:05 Discharge date: 11/28/20 Primary care physician: Manju Ho Consults: 11/25/20 10:03 Consult to Physician [CONS] Routine Comment: ptx Consulting Provider: James Molina Reason For Exam: Physician to Consult Discharge Meds Discharge Medications Home Medications lstefqre-dfv-xbpz-vitamin K [Adults' Daily Formula] 1 tab PO QPM 11/24/20 [Hist ory Confirmed 11/24/20 Last Taken 11/23/20 22:00] COURSE Hospital Course Hospital course: Ms. Dey is a 35 year old female who presented to the ED with chest pain or shortness of breath. She did report that 2 to 3 weeks ago she was exercising on a stair machine for an hour when she developed similar symptoms but not as severe at eventually went away after several hours. She described the pain as sharp and pleuritic. ED work-up included chest x-ray which showed a left large pneumothorax. A pigtail catheter was placed, general surgery was consulted for management of the chest tube. After several days the chest tube removed per surgery, follow up chest x-ray did not show evidence of recurrent pneumothorax. Surgery felt the patient was stable for discharge and the patient was discharged to home with her . Discharge diagnosis: spontaneous pneumothorax Time Spent with Patient Time attestation: Total time spent providing and/or coordinating discharge services: 20 minutes EXAM Constitutional Vitals: Temp Pulse Resp BP Pulse Ox 98.7 F 74 18 101/57 100 11/28/20 16:00 11/28/20 16:00 11/28/20 16:00 11/28/20 16:00 11/28/20 16:00 Additional findings Additional findings: Head: Atraumatic, normal inspection. Eyes: normal appearance, no scleral icterus. Neck: full ROM Respiratory: no respiratory distress. Cardiovascular: normal rate GI/Abdominal: no guarding. Extremities: full range of motion, nontender. Neurological: CN II-XII intact, intact motor, intact sensation. Psychiatric: normal mood. Skin: warm, normal color Discharge Plan Patient/Caregiver Discharge Instructions Activity: increase activity as tolerated Diet: Regular Diet Instructions: Spontaneous Pneumothorax (GEN) Activity Restrictions/Additional Instructions: Leave chest tube site dressing in place x48 hours, then may remove and cover with Band-Aid as needed. Resume showering 48 hours. Increase activity as tolerated. May resume regular diet as tolerated. Call your physician for sustained fever greater than 100.5, increase in shortness of breath, or any questions/concerns. This discharge packet is provided to you to help keep you informed about your care. We want to ensure you get everything you need when you go home. You will also be receiving a call from us in a few days to follow up with you and see how you are doing since your discharge. This gives us a chance to listen to any concerns you maybe experiencing since you were discharged or any additional need s you may have, as well as providing us feedback on your care experience. We strive to always provide excellent care and thank you for your feedback and for choosing [facility]. Prescriptions: No Action Adults' Daily Formula 18 mg iron-25 mcg Tablet 1 tab PO QPM RF: 0 Follow Up Plan Follow up with: James Molina MD [Physician] - Patient Disposition: Home, Self-Care Prognosis: Fair Overall status at discharge: patient is progressing back to baseline Discharge Orders: Discharge Order (Routine); Ordered 11/28/20 Ordered By: James Molina Discharge Comment: home via private vehicle with QUALITY VTE Deep Vein Thrombosis/Pulmonary Embolism Present on Admission: No
== END 2020-11-28 17:33 | disposition home or self-care (01) | DRG 201 ==
LOC: ICU → MEDSUR 18:14
PROVIDERS: ADMIT Internal Medicine; ATTEND Internal Medicine